=== PATIENT | male | born 1935 | race Caucasian/White ===

== ENCOUNTER 2016-10-17 11:56 | Inpatient (IN) | payer MEDICARE, OTHER, MEDICAID ==
[~2016-10-17 11:56] MED LIST: ALEVE220 M1 PO; ASPIR 8181 M1 PO; ATIVAN0.5 MG PO; B COMPLEX1 CAP PO; BACTRIM DS1 TA1 PO; CALCIUM 500 +1 EAC8 PO; CANASA1000 MG PR; CELEXA10 MG PO; CENTRUM SILVER1 EACH PO; CIPRO500 M1 PO; CIPRO500 MG PO; CITALOPRAM HBR10 M1 PO; COLACE100 M1 PO; COLACE100 MG PO; CYANOCOBAL1000 MCG/3 IM; DOCUSATE SODIU100 M PO; FERROUS SULFAT325 MG PO; FLAGYL500 MG PO; FLOMAX0.4 MG PO; FLONASE ALLERG9.9 ML; FLOVENT DISKUS50 MCG IH; FLUTICASONE PRO16 G1; GABAPENTIN300 M1 PO; HYDROCODON-ACE1 EA16 PO; HYDROCODONE/APA1 CAP PO; IRON325 ( 65 ) PO; IRON325 M3 PO; KEFLEX500 M4 PO; LIDODERM700 MG TOP; LO-DOSE ASPIRIN81 M2 PO; MILK OF MAGNESIA PO; MULTIVITAMIN1 TAB PO; NORCO 5/3251 TA1 PO; OMEPRAZOLE40 M2 PO; OMEPRAZOLE40 MG PO; PAIN & FEVER325 M1 PO; PREVACID15 MG PO; PRILOSEC10 MG PO; PRILOSEC40 M1 PO; PROTONIX40 M2 PO; PYRIDIUM200 MG PO; RANEXA500 M1 PO; TENS 5021 EACH; TYLENOL EXTRA500 M1 PO; TYLENOL325 MG PO; [UNRECOGNIZED DRUG - OTHER] PO; [UNRECOGNIZED DRUG - REMARK]
[2016-10-17 12:27] LABS: INR 1.1 INR (0.9-1.1); PROTHROMBIN TIME 13.3 SECONDS (9.0-13.6)
[2016-10-17] MEDS ORDERED: PYRIDOXINE HCL50 M1 PO (12:35)
[2016-10-17 12:39] LABS: ANION GAP 14 mmol/L (0-20); BLOOD UREA NITROGEN 19 mg/dl (6-24); CALCIUM 8.6 mg/dl (8.5-10.5); CARBON DIOXIDE-VENOUS 25 mmol/L (22-32); CHLORIDE 103 mmol/l (96-110); CREATININE 1.37 mg/dl (0.60-1.30); GLUCOSE 84 mg/dL (70-110); HGB-HEMOGLOBIN 8.5 gm/dl (13.5-17.0); MCH (MEAN CORPUSCULAR HGB) 29.7 pg (28.0-32.0); MCHC MEAN CORPUSCULAR HGB CONC 32.7 % (32.0-36.0); MCV (MEAN CELL VOLUME) 90.9 fl (82.0-96.0); NEUTROPHIL-AUTOMATED 2.1 tho/cmm (1.6-8.0); POTASSIUM 4.1 mmol/L (3.7-5.1); RED BLOOD COUNT 2.86 mil/cmm (4.40-5.70); RED CELL DISTRIBUTION WIDTH 17.9 % (12.4-16.4); SODIUM 138 mmol/L (135-145); WHITE BLOOD COUNT 3.1 tho/cmm (4.0-10.0); eGFR VALUE FOR BLACK 56 mL/Min
[2016-10-17] MEDS ORDERED: PROCRIT20000 UNIT SC (12:42)
[2016-10-17 13:38] LABS: PLATELET COUNT 73 tho/cmm (150-450)
[2016-10-17 13:48] LABS: BAND % 15 % (0-20); BAND ABSOLUTE COUNT 0.5 tho/cmm (0-2.0); EOSINOPHIL % 8 % (0-7)
[2016-10-17 16:26] LABS: ALB/GLOB RATIO 0.7 (0.8-2.0); ALBUMIN 3.2 g/dl (3.5-5.0); BILIRUBIN,DIRECT 0.3 mg/dl (0.0-0.3); BILIRUBIN,INDIRECT 1.3 mg/dL (0.0-1.0); BILIRUBIN,TOTAL 1.6 mg/dl (0.0-1.5)
[2016-10-18 05:44] LABS: BASO % 0.7 % (0-2); EOS % 5.2 % (0-7); EOSINOPHIL ABSOLUTE COUNT 0.1 tho/cmm (0.0-0.7); HGB-HEMOGLOBIN 7.5 gm/dl (13.5-17.0); IMMATURE GRANULOCYTES PERCENT 3.7 % (0-0.3); LYMPH % 20.7 % (20-45); LYMPH ABSOLUTE COUNT 0.6 tho/cmm (0.8-4.5); MCH (MEAN CORPUSCULAR HGB) 29.4 pg (28.0-32.0); MONO % 8.9 % (0-12); MONOCYTE ABSOLUTE COUNT 0.2 tho/cmm (0.0-1.2); NEUTROPHIL ABSOLUTE COUNT 1.7 tho/cmm (1.6-8.0); NEUTROPHIL-AUTOMATED 1.7 tho/cmm (1.6-8.0); NEUTROPHILS % 60.8 % (40-80); RED BLOOD COUNT 2.55 mil/cmm (4.40-5.70); RED CELL DISTRIBUTION WIDTH 17.9 % (12.4-16.4); WHITE BLOOD COUNT 2.7 tho/cmm (4.0-10.0)
[2016-10-18 05:58] LABS: ANION GAP 11 mmol/L (0-20); BLOOD UREA NITROGEN 19 mg/dl (6-24); CALCIUM 7.7 mg/dl (8.5-10.5); CARBON DIOXIDE-VENOUS 26 mmol/L (22-32); CHLORIDE 106 mmol/l (96-110); CREATININE 1.11 mg/dl (0.60-1.30); GLUCOSE 101 mg/dL (70-110); POTASSIUM 4.2 mmol/L (3.7-5.1); SODIUM 139 mmol/L (135-145); eGFR VALUE FOR BLACK 72 mL/Min
[2016-10-18 06:08] LABS: HCT-HEMATOCRIT 23.2 % (36.0-53.5); MCHC MEAN CORPUSCULAR HGB CONC 32.3 % (32.0-36.0)
[2016-10-18 09:05] LABS: PLATELET COUNT 87 tho/cmm (150-450)
[2016-10-19 12:21] LABS: BASO % 0.2 % (0-2); EOS % 3.6 % (0-7); EOSINOPHIL ABSOLUTE COUNT 0.2 tho/cmm (0.0-0.7); HGB-HEMOGLOBIN 7.6 gm/dl (13.5-17.0); IMMATURE GRANULOCYTES ABSOLUTE 0.09 tho/cmm (0-0.03); LYMPH % 12.1 % (20-45); LYMPH ABSOLUTE COUNT 0.5 tho/cmm (0.8-4.5); MCH (MEAN CORPUSCULAR HGB) 29.2 pg (28.0-32.0); MCV (MEAN CELL VOLUME) 90.8 fl (82.0-96.0); MONO % 4.7 % (0-12); MONOCYTE ABSOLUTE COUNT 0.2 tho/cmm (0.0-1.2); NEUTROPHIL ABSOLUTE COUNT 3.4 tho/cmm (1.6-8.0); NEUTROPHIL-AUTOMATED 3.4 tho/cmm (1.6-8.0); NEUTROPHILS % 77.4 % (40-80); PLATELET COUNT 82 tho/cmm (150-450); RED CELL DISTRIBUTION WIDTH 17.8 % (12.4-16.4)
[2016-10-19 12:25] LABS: HCT-HEMATOCRIT 23.6 % (36.0-53.5); MCHC MEAN CORPUSCULAR HGB CONC 32.2 % (32.0-36.0); WHITE BLOOD COUNT 4.5 tho/cmm (4.0-10.0)
[2016-10-20 04:47] LABS: PLATELET COUNT 80 tho/cmm (150-450)
[2017-03-24] MEDS ORDERED: PROTONIX40 M2 PO (23:07)
[2017-03-24] MEDS ORDERED: MAGNESIUM400 M2 PO (23:07)
[2017-03-24] MEDS ORDERED: ASPIRIN EC81 MG PO (23:07)
[2017-03-24] MEDS ORDERED: VITAMIN B-6100 M1 PO (23:08)
[2017-03-24] MEDS ORDERED: PRINIVIL5 M1 PO (23:08)
[2017-03-24] MEDS ORDERED: PLAVIX75 M1 PO (23:08)
[2017-03-24] MEDS ORDERED: LIPITOR40 M1 PO (23:08)
[2017-03-25] MEDS ORDERED: LOPERAMIDE2 M2 PO (10:07)
[2017-04-02] MEDS ORDERED: IPRAT-ALBUT 0.5-3 ML NEB ×2 (11:48→11:50)
[2017-04-02] MEDS ORDERED: PACERONE200 M1 PO (11:52)
[2017-04-02] MEDS ORDERED: LASIX20 M1 PO (12:47)
[2017-04-15] MEDS ORDERED: ANALGESIC BALM30 G2 TOP (15:23)
[2017-04-15] MEDS ORDERED: LIDODERM1 EACH TOP (15:38)
== END 2016-10-20 16:45 | DRG 812 ==
LOC: EDMED 11:56 → EMR2 15:58 → 5WE 18:00
PROVIDERS: Emergency Medicine; ADMIT Internal Medicine
PROC: 30233N1 Transfusion of Nonautologous Red Blood Cells into Peripheral Vein, Percutaneous Approach (ICD-10-PCS; principal; 2016-10-19)
DX: D46.9 Myelodysplastic syndrome, unspecified (principal); D61.818 Other pancytopenia; E86.0 Dehydration; I35.0 Nonrheumatic aortic (valve) stenosis; F32.9 Major depressive disorder, single episode, unspecified; I71.4 Abdominal aortic aneurysm, without rupture; R01.1 Cardiac murmur, unspecified; Z85.46 Personal history of malignant neoplasm of prostate; N18.9 Chronic kidney disease, unspecified; M81.0 Age-related osteoporosis without current pathological fracture; K21.9 Gastro-esophageal reflux disease without esophagitis; Z87.891 Personal history of nicotine dependence; Z98.890 Other specified postprocedural states
CPT/HCPCS: A9503; A9540; A9558; J2405; J7030; J7050; P9016; Q9967

== ENCOUNTER 2016-11-12 05:24 | Inpatient (IN) | payer MEDICARE, OTHER, MEDICAID ==
[~2016-11-12 05:24] MED LIST changes: +PROCRIT20000 UNIT SC; +PYRIDOXINE HCL50 M1 PO
[2016-11-12 06:53] LABS: ALB/GLOB RATIO 0.6 (0.8-2.0); ALBUMIN 2.8 g/dl (3.5-5.0); ALKALINE PHOSPHATASE 65 U/L (33-138); ALT/SGPT 10 U/L (12-78); ANION GAP 9 mmol/L (0-20); AST/SGOT 22 U/L (10-40); BILIRUBIN,TOTAL 1.6 mg/dl (0.0-1.5); BLOOD UREA NITROGEN 24 mg/dl (6-24); CALCIUM 8.5 mg/dl (8.5-10.5); CARBON DIOXIDE-VENOUS 29 mmol/L (22-32); CHLORIDE 104 mmol/l (96-110); CREATININE 1.17 mg/dl (0.60-1.30); GLUCOSE 104 mg/dL (70-110); POTASSIUM 4.4 mmol/L (3.7-5.1); SODIUM 138 mmol/L (135-145); eGFR VALUE FOR BLACK 67 mL/Min
[2016-11-12 07:00] LABS: HGB-HEMOGLOBIN 6.9 gm/dl (13.5-17.0); MCH (MEAN CORPUSCULAR HGB) 28.8 pg (28.0-32.0); MCV (MEAN CELL VOLUME) 88.8 fl (82.0-96.0); NEUTROPHIL-AUTOMATED 6.5 tho/cmm (1.6-8.0); RED CELL DISTRIBUTION WIDTH 18.5 % (12.4-16.4); WHITE BLOOD COUNT 7.7 tho/cmm (4.0-10.0)
[2016-11-12 07:02] LABS: HCT-HEMATOCRIT 21.3 % (36.0-53.5); MCHC MEAN CORPUSCULAR HGB CONC 32.4 % (32.0-36.0)
[2016-11-12 07:36] LABS: PLATELET COUNT 33 tho/cmm (150-450)
[2016-11-12 07:40] LABS: BAND % 23 % (0-20); BAND ABSOLUTE COUNT 1.8 tho/cmm (0-2.0); EOSINOPHIL % 2 % (0-7)
[2016-11-12] MEDS ORDERED: ONDANSETRON HCL8 M1 PO (11:05)
[2016-11-13 04:43] LABS: HGB-HEMOGLOBIN 7.3 gm/dl (13.5-17.0)
[2016-11-13 04:45] LABS: PLATELET COUNT 14 tho/cmm (150-450)
[2016-11-13 04:51] LABS: ANION GAP 9 mmol/L (0-20); BLOOD UREA NITROGEN 28 mg/dl (6-24); CALCIUM 7.8 mg/dl (8.5-10.5); CARBON DIOXIDE-VENOUS 29 mmol/L (22-32); CHLORIDE 105 mmol/l (96-110); CREATININE 1.14 mg/dl (0.60-1.30); GLUCOSE 104 mg/dL (70-110); POTASSIUM 4.4 mmol/L (3.7-5.1); SODIUM 139 mmol/L (135-145); eGFR VALUE FOR BLACK 70 mL/Min
[2016-11-13 12:29] LABS: ALB/GLOB RATIO 0.7 (0.8-2.0); ALBUMIN 2.8 g/dl (3.5-5.0); ALKALINE PHOSPHATASE 64 U/L (33-138); ALT/SGPT 12 U/L (12-78); ANION GAP 10 mmol/L (0-20); AST/SGOT 23 U/L (10-40); BILIRUBIN,TOTAL 2.1 mg/dl (0.0-1.5); BLOOD UREA NITROGEN 28 mg/dl (6-24); CALCIUM 8.1 mg/dl (8.5-10.5); CARBON DIOXIDE-VENOUS 27 mmol/L (22-32); CHLORIDE 103 mmol/l (96-110); CREATININE 1.15 mg/dl (0.60-1.30); GLUCOSE 119 mg/dL (70-110); POTASSIUM 4.2 mmol/L (3.7-5.1); SODIUM 136 mmol/L (135-145); eGFR VALUE FOR BLACK 69 mL/Min
[2016-11-14 00:41] LABS: PLATELET COUNT 42 tho/cmm (150-450)
[2016-11-14 05:42] LABS: BASO % 0.2 % (0-2); EOS % 2.5 % (0-7); EOSINOPHIL ABSOLUTE COUNT 0.1 tho/cmm (0.0-0.7); HGB-HEMOGLOBIN 6.2 gm/dl (13.5-17.0); IMMATURE GRANULOCYTES PERCENT 2.1 % (0-0.3); LYMPH % 12.3 % (20-45); LYMPH ABSOLUTE COUNT 0.6 tho/cmm (0.8-4.5); MCV (MEAN CELL VOLUME) 87.4 fl (82.0-96.0); MONO % 2.1 % (0-12); MONOCYTE ABSOLUTE COUNT 0.1 tho/cmm (0.0-1.2); NEUTROPHIL ABSOLUTE COUNT 3.8 tho/cmm (1.6-8.0); NEUTROPHIL-AUTOMATED 3.8 tho/cmm (1.6-8.0); NEUTROPHILS % 80.8 % (40-80); RED BLOOD COUNT 2.14 mil/cmm (4.40-5.70); RED CELL DISTRIBUTION WIDTH 18.5 % (12.4-16.4); WHITE BLOOD COUNT 4.7 tho/cmm (4.0-10.0)
[2016-11-14 05:47] LABS: HCT-HEMATOCRIT 18.7 % (36.0-53.5); MCHC MEAN CORPUSCULAR HGB CONC 33.2 % (32.0-36.0)
[2016-11-14 05:48] LABS: PLATELET COUNT 31 tho/cmm (150-450)
[2016-11-14 05:51] LABS: ANION GAP 9 mmol/L (0-20); BLOOD UREA NITROGEN 28 mg/dl (6-24); CALCIUM 7.8 mg/dl (8.5-10.5); CARBON DIOXIDE-VENOUS 27 mmol/L (22-32); CHLORIDE 104 mmol/l (96-110); CREATININE 1.08 mg/dl (0.60-1.30); GLUCOSE 98 mg/dL (70-110); POTASSIUM 4.2 mmol/L (3.7-5.1); SODIUM 136 mmol/L (135-145); eGFR VALUE FOR BLACK 74 mL/Min
[2016-11-15 04:24] LABS: EOS % 2.7 % (0-7); EOSINOPHIL ABSOLUTE COUNT 0.1 tho/cmm (0.0-0.7); IMMATURE GRANULOCYTES ABSOLUTE 0.11 tho/cmm (0-0.03); IMMATURE GRANULOCYTES PERCENT 3.3 % (0-0.3); LYMPH % 13.9 % (20-45); LYMPH ABSOLUTE COUNT 0.5 tho/cmm (0.8-4.5); MCH (MEAN CORPUSCULAR HGB) 28.8 pg (28.0-32.0); MCV (MEAN CELL VOLUME) 87.2 fl (82.0-96.0); MONO % 4.1 % (0-12); MONOCYTE ABSOLUTE COUNT 0.1 tho/cmm (0.0-1.2); NEUTROPHIL ABSOLUTE COUNT 2.6 tho/cmm (1.6-8.0); NEUTROPHIL-AUTOMATED 2.6 tho/cmm (1.6-8.0); RED BLOOD COUNT 2.43 mil/cmm (4.40-5.70); RED CELL DISTRIBUTION WIDTH 17.7 % (12.4-16.4); WHITE BLOOD COUNT 3.4 tho/cmm (4.0-10.0)
[2016-11-15 04:30] LABS: HCT-HEMATOCRIT 21.2 % (36.0-53.5)
[2016-11-15 04:34] LABS: PLATELET COUNT 21 tho/cmm (150-450)
[2016-11-15 04:41] LABS: ALB/GLOB RATIO 0.6 (0.8-2.0); ALBUMIN 2.6 g/dl (3.5-5.0); ALKALINE PHOSPHATASE 58 U/L (33-138); ALT/SGPT 12 U/L (12-78); ANION GAP 10 mmol/L (0-20); AST/SGOT 19 U/L (10-40); BILIRUBIN,TOTAL 2.1 mg/dl (0.0-1.5); BLOOD UREA NITROGEN 28 mg/dl (6-24); CARBON DIOXIDE-VENOUS 28 mmol/L (22-32); CHLORIDE 103 mmol/l (96-110); CREATININE 1.16 mg/dl (0.60-1.30); GLUCOSE 112 mg/dL (70-110); POTASSIUM 3.9 mmol/L (3.7-5.1); SODIUM 137 mmol/L (135-145); eGFR VALUE FOR BLACK 68 mL/Min
[2016-11-16 01:49] LABS: EOS % 2.9 % (0-7); EOSINOPHIL ABSOLUTE COUNT 0.1 tho/cmm (0.0-0.7); HCT-HEMATOCRIT 21.3 % (36.0-53.5); HGB-HEMOGLOBIN 7.2 gm/dl (13.5-17.0); IMMATURE GRANULOCYTES PERCENT 4.8 % (0-0.3); LYMPH % 25.7 % (20-45); LYMPH ABSOLUTE COUNT 0.5 tho/cmm (0.8-4.5); MCH (MEAN CORPUSCULAR HGB) 28.8 pg (28.0-32.0); MCHC MEAN CORPUSCULAR HGB CONC 33.8 % (32.0-36.0); MCV (MEAN CELL VOLUME) 85.2 fl (82.0-96.0); MONO % 3.8 % (0-12); MONOCYTE ABSOLUTE COUNT 0.1 tho/cmm (0.0-1.2); NEUTROPHIL ABSOLUTE COUNT 1.3 tho/cmm (1.6-8.0); NEUTROPHIL-AUTOMATED 1.3 tho/cmm (1.6-8.0); NEUTROPHILS % 62.8 % (40-80); WHITE BLOOD COUNT 2.1 tho/cmm (4.0-10.0)
[2016-11-16 01:51] LABS: PLATELET COUNT 41 tho/cmm (150-450)
[2016-11-16 02:01] LABS: ANION GAP 14 mmol/L (0-20); BLOOD UREA NITROGEN 27 mg/dl (6-24); CALCIUM 7.6 mg/dl (8.5-10.5); CARBON DIOXIDE-VENOUS 26 mmol/L (22-32); CHLORIDE 101 mmol/l (96-110); CREATININE 1.11 mg/dl (0.60-1.30); GLUCOSE 116 mg/dL (70-110); POTASSIUM 3.8 mmol/L (3.7-5.1); SODIUM 137 mmol/L (135-145); eGFR VALUE FOR BLACK 72 mL/Min
[2016-11-16 20:00] LABS: URINE APPEARANCE HAZY; URINE BILIRUBIN NEGATIVE (NEG); URINE BLOOD LARGE (NEG); URINE COLOR YELLOW; URINE GLUCOSE (UA) NEGATIVE (NEG); URINE KETONE NEGATIVE (NEG); URINE LEUKOCYTE ESTERASE NEGATIVE (NEG); URINE NITRITE NEGATIVE (NEG); URINE PROTEIN SMALL (NEG); URINE SPECIFIC GRAVITY 1.015 (1.003-1.030)
[2016-11-16 20:19] LABS: URINE EPITHELIAL CELLS 0 /[HPF] (0-10); URINE WBC 0 /[HPF] (0-5)
[2016-11-16 21:03] LABS: PROCALCITONIN 0.24 ng/ml (0.05-0.09)
[2016-11-17 13:30] LABS: HCT-HEMATOCRIT 24.7 % (36.0-53.5); HGB-HEMOGLOBIN 8.4 gm/dl (13.5-17.0); MCH (MEAN CORPUSCULAR HGB) 28.9 pg (28.0-32.0); MCV (MEAN CELL VOLUME) 84.9 fl (82.0-96.0); NEUTROPHIL-AUTOMATED 0.9 tho/cmm (1.6-8.0); RED BLOOD COUNT 2.91 mil/cmm (4.40-5.70); RED CELL DISTRIBUTION WIDTH 16.2 % (12.4-16.4)
[2016-11-17 13:37] LABS: EOS % 3.6 % (0-7); EOSINOPHIL ABSOLUTE COUNT 0.1 tho/cmm (0.0-0.7); IMMATURE GRANULOCYTES ABSOLUTE 0.08 tho/cmm (0-0.03); IMMATURE GRANULOCYTES PERCENT 5.8 % (0-0.3); LYMPH % 21.6 % (20-45); LYMPH ABSOLUTE COUNT 0.3 tho/cmm (0.8-4.5); MONO % 1.4 % (0-12); NEUTROPHIL ABSOLUTE COUNT 0.9 tho/cmm (1.6-8.0); NEUTROPHILS % 67.6 % (40-80)
[2016-11-17 13:38] LABS: ANION GAP 12 mmol/L (0-20); BLOOD UREA NITROGEN 21 mg/dl (6-24); CALCIUM 7.7 mg/dl (8.5-10.5); CARBON DIOXIDE-VENOUS 25 mmol/L (22-32); CHLORIDE 100 mmol/l (96-110); CREATININE 0.99 mg/dl (0.60-1.30); GLUCOSE 100 mg/dL (70-110); POTASSIUM 3.9 mmol/L (3.7-5.1); SODIUM 133 mmol/L (135-145); eGFR VALUE FOR BLACK 82 mL/Min
[2016-11-17 13:40] LABS: PLATELET COUNT 16 tho/cmm (150-450); WHITE BLOOD COUNT 1.4 tho/cmm (4.0-10.0)
[2016-11-18 04:34] LABS: EOS % 2.7 % (0-7); EOSINOPHIL ABSOLUTE COUNT 0.1 tho/cmm (0.0-0.7); HGB-HEMOGLOBIN 7.2 gm/dl (13.5-17.0); IMMATURE GRANULOCYTES ABSOLUTE 0.03 tho/cmm (0-0.03); IMMATURE GRANULOCYTES PERCENT 1.6 % (0-0.3); LYMPH % 23.1 % (20-45); LYMPH ABSOLUTE COUNT 0.4 tho/cmm (0.8-4.5); MCH (MEAN CORPUSCULAR HGB) 28.7 pg (28.0-32.0); MCV (MEAN CELL VOLUME) 86.1 fl (82.0-96.0); MONO % 3.8 % (0-12); MONOCYTE ABSOLUTE COUNT 0.1 tho/cmm (0.0-1.2); NEUTROPHIL ABSOLUTE COUNT 1.3 tho/cmm (1.6-8.0); NEUTROPHIL-AUTOMATED 1.3 tho/cmm (1.6-8.0); NEUTROPHILS % 68.8 % (40-80); RED BLOOD COUNT 2.51 mil/cmm (4.40-5.70); RED CELL DISTRIBUTION WIDTH 16.2 % (12.4-16.4)
[2016-11-18 04:36] LABS: HCT-HEMATOCRIT 21.6 % (36.0-53.5); MCHC MEAN CORPUSCULAR HGB CONC 33.3 % (32.0-36.0); PLATELET COUNT 34 tho/cmm (150-450)
[2016-11-18 04:37] LABS: WHITE BLOOD COUNT 1.9 tho/cmm (4.0-10.0)
[2016-11-18 04:40] LABS: ANION GAP 12 mmol/L (0-20); BLOOD UREA NITROGEN 19 mg/dl (6-24); CALCIUM 7.4 mg/dl (8.5-10.5); CARBON DIOXIDE-VENOUS 26 mmol/L (22-32); CHLORIDE 102 mmol/l (96-110); GLUCOSE 107 mg/dL (70-110); POTASSIUM 3.6 mmol/L (3.7-5.1); SODIUM 136 mmol/L (135-145); eGFR VALUE FOR BLACK 73 mL/Min
[2016-11-18 17:53] LABS: HGB-HEMOGLOBIN 7.6 gm/dl (13.5-17.0); MCV (MEAN CELL VOLUME) 86.2 fl (82.0-96.0)
[2016-11-18 18:32] LABS: HCT-HEMATOCRIT 23.1 % (36.0-53.5)
[2016-11-18 21:17] LABS: EOS % 1.4 % (0-7); HCT-HEMATOCRIT 23.2 % (36.0-53.5); HGB-HEMOGLOBIN 7.8 gm/dl (13.5-17.0); IMMATURE GRANULOCYTES ABSOLUTE 0.02 tho/cmm (0-0.03); IMMATURE GRANULOCYTES PERCENT 1.4 % (0-0.3); LYMPH % 23.6 % (20-45); LYMPH ABSOLUTE COUNT 0.3 tho/cmm (0.8-4.5); MCH (MEAN CORPUSCULAR HGB) 28.8 pg (28.0-32.0); MCHC MEAN CORPUSCULAR HGB CONC 33.6 % (32.0-36.0); MCV (MEAN CELL VOLUME) 85.6 fl (82.0-96.0); MONO % 0.7 % (0-12); NEUTROPHILS % 72.9 % (40-80); RED BLOOD COUNT 2.71 mil/cmm (4.40-5.70); RED CELL DISTRIBUTION WIDTH 15.7 % (12.4-16.4)
[2016-11-18 21:18] LABS: PLATELET COUNT 21 tho/cmm (150-450); WHITE BLOOD COUNT 1.4 tho/cmm (4.0-10.0)
[2016-11-18 21:29] LABS: INR 1.3 INR (0.9-1.1); PROTHROMBIN TIME 14.7 SECONDS (9.0-13.6)
[2016-11-19 05:40] LABS: ALB/GLOB RATIO 0.6 (0.8-2.0); ALBUMIN 2.2 g/dl (3.5-5.0); ALKALINE PHOSPHATASE 55 U/L (33-138); ALT/SGPT 14 U/L (12-78); ANION GAP 12 mmol/L (0-20); AST/SGOT 20 U/L (10-40); BILIRUBIN,TOTAL 2.3 mg/dl (0.0-1.5); BLOOD UREA NITROGEN 19 mg/dl (6-24); CALCIUM 7.5 mg/dl (8.5-10.5); CARBON DIOXIDE-VENOUS 25 mmol/L (22-32); CHLORIDE 101 mmol/l (96-110); CREATININE 0.99 mg/dl (0.60-1.30); EOS % 4.6 % (0-7); EOSINOPHIL ABSOLUTE COUNT 0.1 tho/cmm (0.0-0.7); GLUCOSE 107 mg/dL (70-110); IMMATURE GRANULOCYTES ABSOLUTE 0.04 tho/cmm (0-0.03); IMMATURE GRANULOCYTES PERCENT 3.7 % (0-0.3); LYMPH % 27.8 % (20-45); LYMPH ABSOLUTE COUNT 0.3 tho/cmm (0.8-4.5); MAGNESIUM 1.6 mg/dl (1.8-2.6); MCH (MEAN CORPUSCULAR HGB) 28.9 pg (28.0-32.0); MCV (MEAN CELL VOLUME) 85.5 fl (82.0-96.0); MEAN PLATELET VOLUME 9.8 cmc (9.4-12.4); MONO % 1.9 % (0-12); NEUTROPHIL ABSOLUTE COUNT 0.7 tho/cmm (1.6-8.0); NEUTROPHIL-AUTOMATED 0.7 tho/cmm (1.6-8.0); POTASSIUM 3.9 mmol/L (3.7-5.1); RED BLOOD COUNT 2.42 mil/cmm (4.40-5.70); RED CELL DISTRIBUTION WIDTH 15.6 % (12.4-16.4); SODIUM 134 mmol/L (135-145); eGFR VALUE FOR BLACK 82 mL/Min
[2016-11-19 05:46] LABS: HCT-HEMATOCRIT 20.7 % (36.0-53.5); MCHC MEAN CORPUSCULAR HGB CONC 33.8 % (32.0-36.0); PLATELET COUNT 85 tho/cmm (150-450)
[2016-11-19 05:48] LABS: WHITE BLOOD COUNT 1.1 tho/cmm (4.0-10.0)
[2016-11-19 13:30] LABS: HGB-HEMOGLOBIN 9.6 gm/dl (13.5-17.0)
[2016-11-20 05:44] LABS: HCT-HEMATOCRIT 25.3 % (36.0-53.5); HGB-HEMOGLOBIN 8.5 gm/dl (13.5-17.0); MCH (MEAN CORPUSCULAR HGB) 28.6 pg (28.0-32.0); MCHC MEAN CORPUSCULAR HGB CONC 33.6 % (32.0-36.0); MCV (MEAN CELL VOLUME) 85.2 fl (82.0-96.0); MEAN PLATELET VOLUME 10.5 cmc (9.4-12.4); PLATELET COUNT 57 tho/cmm (150-450); RED BLOOD COUNT 2.97 mil/cmm (4.40-5.70); RED CELL DISTRIBUTION WIDTH 15.4 % (12.4-16.4)
[2016-11-20 05:47] LABS: BASO % 2.5 % (0-2); IMMATURE GRANULOCYTES ABSOLUTE 0.05 tho/cmm (0-0.03); IMMATURE GRANULOCYTES PERCENT 12.5 % (0-0.3); LYMPH ABSOLUTE COUNT 0.1 tho/cmm (0.8-4.5); MONO % 2.5 % (0-12); NEUTROPHILS % 42.5 % (40-80)
[2016-11-20 05:49] LABS: NEUTROPHIL ABSOLUTE COUNT 0.2 tho/cmm (1.6-8.0); WHITE BLOOD COUNT 0.4 tho/cmm (4.0-10.0)
[2016-11-20 05:59] LABS: ALB/GLOB RATIO 0.5 (0.8-2.0); ALBUMIN 2.2 g/dl (3.5-5.0); ALKALINE PHOSPHATASE 59 U/L (33-138); ALT/SGPT 14 U/L (12-78); ANION GAP 13 mmol/L (0-20); AST/SGOT 25 U/L (10-40); BILIRUBIN,DIRECT 1.3 mg/dl (0.0-0.3); BILIRUBIN,INDIRECT 1.2 mg/dL (0.0-1.0); BILIRUBIN,TOTAL 2.5 mg/dl (0.0-1.5); BLOOD UREA NITROGEN 21 mg/dl (6-24); CALCIUM 7.6 mg/dl (8.5-10.5); CARBON DIOXIDE-VENOUS 25 mmol/L (22-32); CHLORIDE 101 mmol/l (96-110); GLUCOSE 121 mg/dL (70-110); POTASSIUM 3.9 mmol/L (3.7-5.1); SODIUM 135 mmol/L (135-145); eGFR VALUE FOR BLACK 56 mL/Min
[2016-11-20 06:03] LABS: CREATININE 1.37 mg/dl (0.60-1.30)
[2016-11-20 14:54] LABS: EOS % 2.3 % (0-7); HCT-HEMATOCRIT 26.8 % (36.0-53.5); LYMPH % 44.2 % (20-45); LYMPH ABSOLUTE COUNT 0.2 tho/cmm (0.8-4.5); MCH (MEAN CORPUSCULAR HGB) 28.8 pg (28.0-32.0); MCHC MEAN CORPUSCULAR HGB CONC 33.6 % (32.0-36.0); MCV (MEAN CELL VOLUME) 85.9 fl (82.0-96.0); MEAN PLATELET VOLUME 10.8 cmc (9.4-12.4); MONO % 2.3 % (0-12); NEUTROPHILS % 51.2 % (40-80); RED BLOOD COUNT 3.12 mil/cmm (4.40-5.70); RED CELL DISTRIBUTION WIDTH 15.4 % (12.4-16.4)
[2016-11-20 15:01] LABS: WHITE BLOOD COUNT 0.4 tho/cmm (4.0-10.0)
[2016-11-20 15:04] LABS: NEUTROPHIL ABSOLUTE COUNT 0.2 tho/cmm (1.6-8.0); PLATELET COUNT 46 tho/cmm (150-450)
[2016-11-20 19:44] LABS: URINE BILIRUBIN SMALL (NEG); URINE BLOOD LARGE (NEG); URINE GLUCOSE (UA) NEGATIVE (NEG); URINE KETONE NEGATIVE (NEG); URINE LEUKOCYTE ESTERASE POSITIVE (NEG); URINE NITRITE NEGATIVE (NEG); URINE PROTEIN MODERATE (NEG)
[2016-11-20 19:45] LABS: URINE APPEARANCE HAZY; URINE COLOR DARK YELLOW
[2016-11-20 19:55] LABS: URINE BACTERIA 2+; URINE EPITHELIAL CELLS 0-2 /[HPF] (0-10); URINE WBC 0-1 /[HPF] (0-5)
[2016-11-21 04:24] LABS: EOS % 5.7 % (0-7); LYMPH % 62.9 % (20-45); LYMPH ABSOLUTE COUNT 0.2 tho/cmm (0.8-4.5); MCH (MEAN CORPUSCULAR HGB) 29.3 pg (28.0-32.0); MCV (MEAN CELL VOLUME) 85.8 fl (82.0-96.0); MEAN PLATELET VOLUME 9.6 cmc (9.4-12.4); NEUTROPHILS % 31.4 % (40-80); RED BLOOD COUNT 2.39 mil/cmm (4.40-5.70); RED CELL DISTRIBUTION WIDTH 15.3 % (12.4-16.4)
[2016-11-21 04:52] LABS: ALB/GLOB RATIO 0.5 (0.8-2.0); ALKALINE PHOSPHATASE 60 U/L (33-138); ALT/SGPT 18 U/L (12-78); ANION GAP 12 mmol/L (0-20); AST/SGOT 28 U/L (10-40); BILIRUBIN,DIRECT 1.1 mg/dl (0.0-0.3); BILIRUBIN,TOTAL 2.1 mg/dl (0.0-1.5); BLOOD UREA NITROGEN 26 mg/dl (6-24); CALCIUM 7.2 mg/dl (8.5-10.5); CARBON DIOXIDE-VENOUS 24 mmol/L (22-32); CHLORIDE 100 mmol/l (96-110); GLUCOSE 135 mg/dL (70-110); POTASSIUM 3.8 mmol/L (3.7-5.1); SODIUM 132 mmol/L (135-145); eGFR VALUE FOR BLACK 50 mL/Min
[2016-11-21 05:10] LABS: HCT-HEMATOCRIT 20.5 % (36.0-53.5); MCHC MEAN CORPUSCULAR HGB CONC 34.1 % (32.0-36.0)
[2016-11-21 05:11] LABS: PLATELET COUNT 37 tho/cmm (150-450); WHITE BLOOD COUNT 0.4 tho/cmm (4.0-10.0)
[2016-11-21 07:03] LABS: NEUTROPHIL ABSOLUTE COUNT 0.1 tho/cmm (1.6-8.0)
[2016-11-21 13:48] LABS: HGB-HEMOGLOBIN 7.8 gm/dl (13.5-17.0); MCH (MEAN CORPUSCULAR HGB) 29.1 pg (28.0-32.0); MCV (MEAN CELL VOLUME) 85.8 fl (82.0-96.0); MEAN PLATELET VOLUME 10.3 cmc (9.4-12.4); RED BLOOD COUNT 2.68 mil/cmm (4.40-5.70); RED CELL DISTRIBUTION WIDTH 15.2 % (12.4-16.4)
[2016-11-21 13:50] LABS: BASO % 2.4 % (0-2); EOS % 4.9 % (0-7); IMMATURE GRANULOCYTES ABSOLUTE 0.05 tho/cmm (0-0.03); IMMATURE GRANULOCYTES PERCENT 12.2 % (0-0.3); LYMPH % 56.1 % (20-45); LYMPH ABSOLUTE COUNT 0.2 tho/cmm (0.8-4.5); MCHC MEAN CORPUSCULAR HGB CONC 33.9 % (32.0-36.0); MONO % 2.4 % (0-12); PLATELET COUNT 63 tho/cmm (150-450)
[2016-11-21 13:51] LABS: NEUTROPHIL ABSOLUTE COUNT 0.1 tho/cmm (1.6-8.0); WHITE BLOOD COUNT 0.4 tho/cmm (4.0-10.0)
[2016-11-21 19:54] LABS: BASO % 2.4 % (0-2); EOS % 7.1 % (0-7); LYMPH ABSOLUTE COUNT 0.3 tho/cmm (0.8-4.5); MCH (MEAN CORPUSCULAR HGB) 29.1 pg (28.0-32.0); MCV (MEAN CELL VOLUME) 85.5 fl (82.0-96.0); MEAN PLATELET VOLUME 9.6 cmc (9.4-12.4); MONO % 2.4 % (0-12); NEUTROPHILS % 19.1 % (40-80); RED BLOOD COUNT 2.75 mil/cmm (4.40-5.70); RED CELL DISTRIBUTION WIDTH 15.1 % (12.4-16.4)
[2016-11-21 19:57] LABS: HCT-HEMATOCRIT 23.5 % (36.0-53.5)
[2016-11-21 19:58] LABS: NEUTROPHIL ABSOLUTE COUNT 0.1 tho/cmm (1.6-8.0); WHITE BLOOD COUNT 0.4 tho/cmm (4.0-10.0)
[2016-11-21 20:00] LABS: PLATELET COUNT 40 tho/cmm (150-450)
[2016-11-22 04:13] LABS: HCT-HEMATOCRIT 25.6 % (36.0-53.5); HGB-HEMOGLOBIN 8.6 gm/dl (13.5-17.0); MCH (MEAN CORPUSCULAR HGB) 28.9 pg (28.0-32.0); MCHC MEAN CORPUSCULAR HGB CONC 33.6 % (32.0-36.0); MCV (MEAN CELL VOLUME) 85.9 fl (82.0-96.0); MEAN PLATELET VOLUME 9.8 cmc (9.4-12.4); RED BLOOD COUNT 2.98 mil/cmm (4.40-5.70); RED CELL DISTRIBUTION WIDTH 15.2 % (12.4-16.4)
[2016-11-22 04:21] LABS: BASO % 2.5 % (0-2); EOS % 7.5 % (0-7); IMMATURE GRANULOCYTES ABSOLUTE 0.03 tho/cmm (0-0.03); IMMATURE GRANULOCYTES PERCENT 7.5 % (0-0.3); LYMPH % 72.5 % (20-45); LYMPH ABSOLUTE COUNT 0.3 tho/cmm (0.8-4.5); MONO % 2.5 % (0-12); NEUTROPHILS % 7.5 % (40-80); PLATELET COUNT 113 tho/cmm (150-450)
[2016-11-22 04:22] LABS: WHITE BLOOD COUNT 0.4 tho/cmm (4.0-10.0)
[2016-11-22 04:28] LABS: ALB/GLOB RATIO 0.5 (0.8-2.0); ALBUMIN 2.3 g/dl (3.5-5.0); ALKALINE PHOSPHATASE 80 U/L (33-138); ALT/SGPT 26 U/L (12-78); ANION GAP 11 mmol/L (0-20); AST/SGOT 42 U/L (10-40); BLOOD UREA NITROGEN 30 mg/dl (6-24); CALCIUM 7.7 mg/dl (8.5-10.5); CARBON DIOXIDE-VENOUS 25 mmol/L (22-32); CHLORIDE 100 mmol/l (96-110); CREATININE 1.41 mg/dl (0.60-1.30); GLUCOSE 107 mg/dL (70-110); MAGNESIUM 1.9 mg/dl (1.8-2.6); POTASSIUM 3.8 mmol/L (3.7-5.1); SODIUM 132 mmol/L (135-145); eGFR VALUE FOR BLACK 54 mL/Min
[2016-11-22 14:09] LABS: MCH (MEAN CORPUSCULAR HGB) 28.9 pg (28.0-32.0); MCV (MEAN CELL VOLUME) 86.3 fl (82.0-96.0); MEAN PLATELET VOLUME 9.7 cmc (9.4-12.4); PLATELET COUNT 83 tho/cmm (150-450); RED BLOOD COUNT 2.77 mil/cmm (4.40-5.70)
[2016-11-22 14:11] LABS: BASO % 4.8 % (0-2); EOS % 9.5 % (0-7); HCT-HEMATOCRIT 23.9 % (36.0-53.5); LYMPH % 57.1 % (20-45); LYMPH ABSOLUTE COUNT 0.1 tho/cmm (0.8-4.5); MCHC MEAN CORPUSCULAR HGB CONC 33.5 % (32.0-36.0); NEUTROPHILS % 28.6 % (40-80)
[2016-11-22 14:12] LABS: NEUTROPHIL ABSOLUTE COUNT 0.1 tho/cmm (1.6-8.0)
[2016-11-22 14:13] LABS: WHITE BLOOD COUNT 0.2 tho/cmm (4.0-10.0)
[2016-11-22 20:37] LABS: EOS % 7.5 % (0-7); HGB-HEMOGLOBIN 7.8 gm/dl (13.5-17.0); LYMPH ABSOLUTE COUNT 0.3 tho/cmm (0.8-4.5); MCH (MEAN CORPUSCULAR HGB) 29.1 pg (28.0-32.0); MCV (MEAN CELL VOLUME) 86.9 fl (82.0-96.0); MEAN PLATELET VOLUME 10.3 cmc (9.4-12.4); MONO % 2.5 % (0-12); PLATELET COUNT 78 tho/cmm (150-450); RED BLOOD COUNT 2.68 mil/cmm (4.40-5.70); RED CELL DISTRIBUTION WIDTH 15.1 % (12.4-16.4)
[2016-11-22 20:42] LABS: HCT-HEMATOCRIT 23.3 % (36.0-53.5); MCHC MEAN CORPUSCULAR HGB CONC 33.5 % (32.0-36.0)
[2016-11-22 20:43] LABS: NEUTROPHIL ABSOLUTE COUNT 0.1 tho/cmm (1.6-8.0); WHITE BLOOD COUNT 0.4 tho/cmm (4.0-10.0)
[2016-11-23 04:40] LABS: EOS % 6.3 % (0-7); HCT-HEMATOCRIT 25.5 % (36.0-53.5); HGB-HEMOGLOBIN 8.5 gm/dl (13.5-17.0); LYMPH % 70.8 % (20-45); MCH (MEAN CORPUSCULAR HGB) 28.9 pg (28.0-32.0); MCHC MEAN CORPUSCULAR HGB CONC 33.3 % (32.0-36.0); MCV (MEAN CELL VOLUME) 86.7 fl (82.0-96.0); MEAN PLATELET VOLUME 9.7 cmc (9.4-12.4); NEUTROPHILS % 18.7 % (40-80); PLATELET COUNT 63 tho/cmm (150-450); RED BLOOD COUNT 2.94 mil/cmm (4.40-5.70); RED CELL DISTRIBUTION WIDTH 14.8 % (12.4-16.4)
[2016-11-23 04:48] LABS: ALB/GLOB RATIO 0.5 (0.8-2.0); ALKALINE PHOSPHATASE 66 U/L (33-138); ALT/SGPT 22 U/L (12-78); ANION GAP 12 mmol/L (0-20); AST/SGOT 31 U/L (10-40); BILIRUBIN,TOTAL 2.3 mg/dl (0.0-1.5); BLOOD UREA NITROGEN 24 mg/dl (6-24); CALCIUM 7.3 mg/dl (8.5-10.5); CARBON DIOXIDE-VENOUS 26 mmol/L (22-32); CHLORIDE 100 mmol/l (96-110); CREATININE 1.24 mg/dl (0.60-1.30); GLUCOSE 100 mg/dL (70-110); MAGNESIUM 1.7 mg/dl (1.8-2.6); POTASSIUM 3.7 mmol/L (3.7-5.1); SODIUM 134 mmol/L (135-145); eGFR VALUE FOR BLACK 63 mL/Min
[2016-11-23 04:49] LABS: BASO % 4.2 % (0-2); LYMPH ABSOLUTE COUNT 0.3 tho/cmm (0.8-4.5)
[2016-11-23 04:50] LABS: NEUTROPHIL ABSOLUTE COUNT 0.1 tho/cmm (1.6-8.0); WHITE BLOOD COUNT 0.5 tho/cmm (4.0-10.0)
[2016-11-23 12:25] LABS: EOS % 8.7 % (0-7); HGB-HEMOGLOBIN 9.1 gm/dl (13.5-17.0); IMMATURE GRANULOCYTES PERCENT 4.3 % (0-0.3); LYMPH % 67.4 % (20-45); MCH (MEAN CORPUSCULAR HGB) 29.3 pg (28.0-32.0); MCHC MEAN CORPUSCULAR HGB CONC 33.7 % (32.0-36.0); MCV (MEAN CELL VOLUME) 86.8 fl (82.0-96.0); MEAN PLATELET VOLUME 10.8 cmc (9.4-12.4); MONO % 4.3 % (0-12); PLATELET COUNT 64 tho/cmm (150-450); RED BLOOD COUNT 3.11 mil/cmm (4.40-5.70); RED CELL DISTRIBUTION WIDTH 14.8 % (12.4-16.4)
[2016-11-23 12:39] LABS: BASO % 4.3 % (0-2); IMMATURE GRANULOCYTES ABSOLUTE 0.02 tho/cmm (0-0.03); LYMPH ABSOLUTE COUNT 0.3 tho/cmm (0.8-4.5); NEUTROPHIL ABSOLUTE COUNT 0.1 tho/cmm (1.6-8.0); WHITE BLOOD COUNT 0.5 tho/cmm (4.0-10.0)
[2016-11-23 20:32] LABS: BASO % 2.3 % (0-2); EOS % 9.1 % (0-7); HCT-HEMATOCRIT 24.9 % (36.0-53.5); HGB-HEMOGLOBIN 8.4 gm/dl (13.5-17.0); IMMATURE GRANULOCYTES ABSOLUTE 0.01 tho/cmm (0-0.03); IMMATURE GRANULOCYTES PERCENT 2.3 % (0-0.3); LYMPH % 70.5 % (20-45); LYMPH ABSOLUTE COUNT 0.3 tho/cmm (0.8-4.5); MCH (MEAN CORPUSCULAR HGB) 29.2 pg (28.0-32.0); MCHC MEAN CORPUSCULAR HGB CONC 33.7 % (32.0-36.0); MCV (MEAN CELL VOLUME) 86.5 fl (82.0-96.0); MEAN PLATELET VOLUME 9.7 cmc (9.4-12.4); NEUTROPHILS % 15.8 % (40-80); PLATELET COUNT 54 tho/cmm (150-450); RED BLOOD COUNT 2.88 mil/cmm (4.40-5.70); RED CELL DISTRIBUTION WIDTH 14.7 % (12.4-16.4)
[2016-11-23 20:39] LABS: WHITE BLOOD COUNT 0.4 tho/cmm (4.0-10.0)
[2016-11-23 20:40] LABS: NEUTROPHIL ABSOLUTE COUNT 0.1 tho/cmm (1.6-8.0)
[2016-11-24 04:16] LABS: BASO % 2.3 % (0-2); EOS % 6.8 % (0-7); HCT-HEMATOCRIT 25.4 % (36.0-53.5); HGB-HEMOGLOBIN 8.5 gm/dl (13.5-17.0); LYMPH % 70.5 % (20-45); LYMPH ABSOLUTE COUNT 0.3 tho/cmm (0.8-4.5); MCH (MEAN CORPUSCULAR HGB) 29.1 pg (28.0-32.0); MCHC MEAN CORPUSCULAR HGB CONC 33.5 % (32.0-36.0); MEAN PLATELET VOLUME 10.8 cmc (9.4-12.4); MONO % 4.5 % (0-12); NEUTROPHILS % 15.9 % (40-80); PLATELET COUNT 52 tho/cmm (150-450); RED BLOOD COUNT 2.92 mil/cmm (4.40-5.70); RED CELL DISTRIBUTION WIDTH 14.7 % (12.4-16.4)
[2016-11-24 04:18] LABS: WHITE BLOOD COUNT 0.4 tho/cmm (4.0-10.0)
[2016-11-24 04:19] LABS: NEUTROPHIL ABSOLUTE COUNT 0.1 tho/cmm (1.6-8.0)
[2016-11-24 04:32] LABS: ALB/GLOB RATIO 0.5 (0.8-2.0); ALBUMIN 2.1 g/dl (3.5-5.0); ALKALINE PHOSPHATASE 63 U/L (33-138); ALT/SGPT 22 U/L (12-78); ANION GAP 10 mmol/L (0-20); AST/SGOT 26 U/L (10-40); BILIRUBIN,TOTAL 1.3 mg/dl (0.0-1.5); BLOOD UREA NITROGEN 22 mg/dl (6-24); CALCIUM 7.5 mg/dl (8.5-10.5); CARBON DIOXIDE-VENOUS 28 mmol/L (22-32); CHLORIDE 103 mmol/l (96-110); CREATININE 1.05 mg/dl (0.60-1.30); GLUCOSE 105 mg/dL (70-110); POTASSIUM 3.5 mmol/L (3.7-5.1); SODIUM 137 mmol/L (135-145); eGFR VALUE FOR BLACK 77 mL/Min
[2016-11-24 06:20] LABS: MAGNESIUM 1.8 mg/dl (1.8-2.6)
[2016-11-24 16:24] LABS: BASO % 2.3 % (0-2); EOS % 6.8 % (0-7); HCT-HEMATOCRIT 25.6 % (36.0-53.5); HGB-HEMOGLOBIN 8.4 gm/dl (13.5-17.0); LYMPH % 68.2 % (20-45); LYMPH ABSOLUTE COUNT 0.3 tho/cmm (0.8-4.5); MCH (MEAN CORPUSCULAR HGB) 28.8 pg (28.0-32.0); MCHC MEAN CORPUSCULAR HGB CONC 32.8 % (32.0-36.0); MCV (MEAN CELL VOLUME) 87.7 fl (82.0-96.0); MEAN PLATELET VOLUME 10.2 cmc (9.4-12.4); MONO % 2.3 % (0-12); NEUTROPHILS % 20.4 % (40-80); RED BLOOD COUNT 2.92 mil/cmm (4.40-5.70); RED CELL DISTRIBUTION WIDTH 14.8 % (12.4-16.4)
[2016-11-24 16:31] LABS: NEUTROPHIL ABSOLUTE COUNT 0.1 tho/cmm (1.6-8.0); PLATELET COUNT 45 tho/cmm (150-450)
[2016-11-24 16:32] LABS: WHITE BLOOD COUNT 0.4 tho/cmm (4.0-10.0)
[2016-11-25 05:17] LABS: EOS % 10.2 % (0-7); EOSINOPHIL ABSOLUTE COUNT 0.1 tho/cmm (0.0-0.7); HCT-HEMATOCRIT 24.2 % (36.0-53.5); IMMATURE GRANULOCYTES ABSOLUTE 0.01 tho/cmm (0-0.03); LYMPH % 63.3 % (20-45); LYMPH ABSOLUTE COUNT 0.3 tho/cmm (0.8-4.5); MCHC MEAN CORPUSCULAR HGB CONC 33.1 % (32.0-36.0); MCV (MEAN CELL VOLUME) 87.7 fl (82.0-96.0); MEAN PLATELET VOLUME 11.1 cmc (9.4-12.4); MONO % 10.2 % (0-12); MONOCYTE ABSOLUTE COUNT 0.1 tho/cmm (0.0-1.2); NEUTROPHILS % 12.3 % (40-80); RED BLOOD COUNT 2.76 mil/cmm (4.40-5.70); RED CELL DISTRIBUTION WIDTH 14.8 % (12.4-16.4)
[2016-11-25 05:23] LABS: PLATELET COUNT 126 tho/cmm (150-450); WHITE BLOOD COUNT 0.5 tho/cmm (4.0-10.0)
[2016-11-25 05:24] LABS: NEUTROPHIL ABSOLUTE COUNT 0.1 tho/cmm (1.6-8.0)
[2016-11-25 05:37] LABS: ANION GAP 11 mmol/L (0-20); BLOOD UREA NITROGEN 22 mg/dl (6-24); CALCIUM 7.7 mg/dl (8.5-10.5); CARBON DIOXIDE-VENOUS 27 mmol/L (22-32); CHLORIDE 102 mmol/l (96-110); CREATININE 1.07 mg/dl (0.60-1.30); GLUCOSE 95 mg/dL (70-110); MAGNESIUM 1.8 mg/dl (1.8-2.6); POTASSIUM 3.9 mmol/L (3.7-5.1); SODIUM 136 mmol/L (135-145); eGFR VALUE FOR BLACK 75 mL/Min
[2017-03-24] MEDS ORDERED: ASPIRIN EC81 MG PO (23:07)
[2017-03-24] MEDS ORDERED: PROTONIX40 M2 PO (23:07)
[2017-03-24] MEDS ORDERED: MAGNESIUM400 M2 PO (23:07)
[2017-03-24] MEDS ORDERED: LIPITOR40 M1 PO (23:08)
[2017-03-24] MEDS ORDERED: PRINIVIL5 M1 PO (23:08)
[2017-03-24] MEDS ORDERED: VITAMIN B-6100 M1 PO (23:08)
[2017-03-24] MEDS ORDERED: PLAVIX75 M1 PO (23:08)
[2017-03-25] MEDS ORDERED: LOPERAMIDE2 M2 PO (10:07)
[2017-04-02] MEDS ORDERED: IPRAT-ALBUT 0.5-3 ML NEB ×2 (11:48→11:50)
[2017-04-02] MEDS ORDERED: PACERONE200 M1 PO (11:52)
[2017-04-02] MEDS ORDERED: LASIX20 M1 PO (12:47)
[2017-04-15] MEDS ORDERED: ANALGESIC BALM30 G2 TOP (15:23)
[2017-04-15] MEDS ORDERED: LIDODERM1 EACH TOP (15:38)
== END 2016-11-25 14:30 | DRG 380 ==
LOC: EDMED 05:24 → 5WF 08:41
PROVIDERS: Emergency Medicine; Family Medicine; Internal Medicine; Internal Medicine Hematology & Oncology; Nurse Practitioner; Physician Assistant Medical; Registered Nurse; ADMIT Internal Medicine
PROC: 30233R1 Transfusion of Nonautologous Platelets into Peripheral Vein, Percutaneous Approach (ICD-10-PCS; 2016-11-13)
PROC: 02HV33Z Insertion of Infusion Device into Superior Vena Cava, Percutaneous Approach (ICD-10-PCS; 2016-11-14)
PROC: 0DB48ZX Excision of Esophagogastric Junction, Via Natural or Artificial Opening Endoscopic, Diagnostic (ICD-10-PCS; principal; 2016-11-16)
PROC: 0DC48ZZ Extirpation of Matter from Esophagogastric Junction, Via Natural or Artificial Opening Endoscopic (ICD-10-PCS; 2016-11-16)
PROC: 0D568ZZ Destruction of Stomach, Via Natural or Artificial Opening Endoscopic (ICD-10-PCS; 2016-11-16)
PROC: 0DBN8ZX Excision of Sigmoid Colon, Via Natural or Artificial Opening Endoscopic, Diagnostic (ICD-10-PCS; 2016-11-19)
DX: K22.11 Ulcer of esophagus with bleeding (principal); N17.0 Acute kidney failure with tubular necrosis; K55.21 Angiodysplasia of colon with hemorrhage; D61.818 Other pancytopenia; D70.9 Neutropenia, unspecified; I95.9 Hypotension, unspecified; K63.3 Ulcer of intestine; R65.10 Systemic inflammatory response syndrome (SIRS) of non-infectious origin without acute organ dysfunction; L03.114 Cellulitis of left upper limb; K57.92 Diverticulitis of intestine, part unspecified, without perforation or abscess without bleeding; D62 Acute posthemorrhagic anemia; Z51.5 Encounter for palliative care; K44.9 Diaphragmatic hernia without obstruction or gangrene; R50.81 Fever presenting with conditions classified elsewhere; I80.9 Phlebitis and thrombophlebitis of unspecified site; D46.9 Myelodysplastic syndrome, unspecified; E80.6 Other disorders of bilirubin metabolism; K21.0 Gastro-esophageal reflux disease with esophagitis; M81.0 Age-related osteoporosis without current pathological fracture; F32.9 Major depressive disorder, single episode, unspecified; D12.5 Benign neoplasm of sigmoid colon; Z85.46 Personal history of malignant neoplasm of prostate; Z85.72 Personal history of non-Hodgkin lymphomas; F17.210 Nicotine dependence, cigarettes, uncomplicated; I71.4 Abdominal aortic aneurysm, without rupture; D69.59 Other secondary thrombocytopenia; I25.10 Atherosclerotic heart disease of native coronary artery without angina pectoris; I12.9 Hypertensive chronic kidney disease with stage 1 through stage 4 chronic kidney disease, or unspecified chronic kidney disease; N18.3 Chronic kidney disease, stage 3 (moderate)
CPT/HCPCS: A9560; C1751; C9113; G8978-GP-CI; G8979-GP-CI; J0692; J0885; J1447; J1940; J2405; J2543; J3370; J3475; J7030; J7050; P9031; P9033; P9035; P9037; P9040

== ENCOUNTER 2016-12-26 18:46 | Emergency (ER) | payer MEDICARE, MEDICAID ==
[~2016-12-26 18:46] MED LIST changes: +ONDANSETRON HCL8 M1 PO
[2016-12-26] MEDS ORDERED: TUMS200 MG PO (19:25)
[2016-12-26] MEDS ORDERED: NEULASTA6 MG/0.61 SC (19:27)
[2016-12-26 19:38] LABS: HCT-HEMATOCRIT 34.9 % (36.0-53.5); HGB-HEMOGLOBIN 10.9 gm/dl (13.5-17.0); MCH (MEAN CORPUSCULAR HGB) 29.7 pg (28.0-32.0); MCHC MEAN CORPUSCULAR HGB CONC 31.2 % (32.0-36.0); MCV (MEAN CELL VOLUME) 95.1 fl (82.0-96.0); NEUTROPHIL-AUTOMATED 35.6 tho/cmm (1.6-8.0); PLATELET COUNT 308 tho/cmm (150-450); RED BLOOD COUNT 3.67 mil/cmm (4.40-5.70); RED CELL DISTRIBUTION WIDTH 18.4 % (12.4-16.4)
[2016-12-26 19:41] LABS: WHITE BLOOD COUNT 38.8 tho/cmm (4.0-10.0)
[2016-12-26 19:42] LABS: INR 1.1 INR (0.9-1.1)
[2016-12-26 19:52] LABS: ALB/GLOB RATIO 0.6 (0.8-2.0); ALBUMIN 2.9 g/dl (3.5-5.0); ALKALINE PHOSPHATASE 125 U/L (33-138); ALT/SGPT 15 U/L (12-78); ANION GAP 14 mmol/L (0-20); AST/SGOT 24 U/L (10-40); BILIRUBIN,TOTAL 0.4 mg/dl (0.0-1.5); BLOOD UREA NITROGEN 24 mg/dl (6-24); CALCIUM 8.9 mg/dl (8.5-10.5); CARBON DIOXIDE-VENOUS 25 mmol/L (22-32); CHLORIDE 104 mmol/l (96-110); CREATININE 1.93 mg/dl (0.60-1.30); GLUCOSE 118 mg/dL (70-110); POTASSIUM 4.2 mmol/L (3.7-5.1); SODIUM 139 mmol/L (135-145); eGFR VALUE FOR BLACK 37 mL/Min
[2016-12-26 20:10] LABS: BAND % 6 % (0-20); BAND ABSOLUTE COUNT 2.3 tho/cmm (0-2.0)
[2016-12-26] MEDS ORDERED: BENADRYL25 M3 PO (20:46)
[2016-12-26] MEDS ORDERED: PREDNISONE20 M1 PO (20:47)
[2017-03-24] MEDS ORDERED: ASPIRIN EC81 MG PO (23:07)
[2017-03-24] MEDS ORDERED: PROTONIX40 M2 PO (23:07)
[2017-03-24] MEDS ORDERED: MAGNESIUM400 M2 PO (23:07)
[2017-03-24] MEDS ORDERED: LIPITOR40 M1 PO (23:08)
[2017-03-24] MEDS ORDERED: PRINIVIL5 M1 PO (23:08)
[2017-03-24] MEDS ORDERED: VITAMIN B-6100 M1 PO (23:08)
[2017-03-24] MEDS ORDERED: PLAVIX75 M1 PO (23:08)
[2017-03-25] MEDS ORDERED: LOPERAMIDE2 M2 PO (10:07)
[2017-04-02] MEDS ORDERED: IPRAT-ALBUT 0.5-3 ML NEB ×2 (11:48→11:50)
[2017-04-02] MEDS ORDERED: PACERONE200 M1 PO (11:52)
[2017-04-02] MEDS ORDERED: LASIX20 M1 PO (12:47)
[2017-04-15] MEDS ORDERED: ANALGESIC BALM30 G2 TOP (15:23)
[2017-04-15] MEDS ORDERED: LIDODERM1 EACH TOP (15:38)
== END 2016-12-26 21:23 ==
LOC: EDMED 18:46
PROVIDERS: Emergency Medicine
DX: L27.0 Generalized skin eruption due to drugs and medicaments taken internally (principal); T45.8X5A Adverse effect of other primarily systemic and hematological agents, initial encounter; K21.9 Gastro-esophageal reflux disease without esophagitis; D64.9 Anemia, unspecified; Z98.890 Other specified postprocedural states; Z85.72 Personal history of non-Hodgkin lymphomas; Z79.899 Other long term (current) drug therapy
CPT/HCPCS: J1200; J2930

== ENCOUNTER 2017-01-24 15:57 | Emergency (ER) | payer MEDICARE, MEDICAID ==
[~2017-01-24 15:57] MED LIST changes: +BENADRYL25 M3 PO; +NEULASTA6 MG/0.61 SC; +PREDNISONE20 M1 PO; +TUMS200 MG PO
[2017-01-24] MEDS ORDERED: FLONASE ALLERG9.9 ML (16:20)
[2017-01-24] MEDS ORDERED: COLACE100 M1 PO (16:20)
[2017-01-24] MEDS ORDERED: OMEPRAZOLE20 M3 PO (16:21)
[2017-01-24 16:50] LABS: BASO % 0.3 % (0-2); EOS % 4.3 % (0-7); EOSINOPHIL ABSOLUTE COUNT 0.3 tho/cmm (0.0-0.7); HCT-HEMATOCRIT 32.8 % (36.0-53.5); HGB-HEMOGLOBIN 10.6 gm/dl (13.5-17.0); IMMATURE GRANULOCYTES ABSOLUTE 0.02 tho/cmm (0-0.03); IMMATURE GRANULOCYTES PERCENT 0.3 % (0-0.3); LYMPH % 6.8 % (20-45); LYMPH ABSOLUTE COUNT 0.5 tho/cmm (0.8-4.5); MCH (MEAN CORPUSCULAR HGB) 32.2 pg (28.0-32.0); MCHC MEAN CORPUSCULAR HGB CONC 32.3 % (32.0-36.0); MCV (MEAN CELL VOLUME) 99.7 fl (82.0-96.0); MEAN PLATELET VOLUME 9.1 cmc (9.4-12.4); MONO % 4.6 % (0-12); MONOCYTE ABSOLUTE COUNT 0.3 tho/cmm (0.0-1.2); NEUTROPHIL ABSOLUTE COUNT 5.7 tho/cmm (1.6-8.0); NEUTROPHIL-AUTOMATED 5.7 tho/cmm (1.6-8.0); NEUTROPHILS % 83.7 % (40-80); PLATELET COUNT 129 tho/cmm (150-450); RED BLOOD COUNT 3.29 mil/cmm (4.40-5.70); RED CELL DISTRIBUTION WIDTH 21.5 % (12.4-16.4); WHITE BLOOD COUNT 6.8 tho/cmm (4.0-10.0)
[2017-01-24 17:04] LABS: ALB/GLOB RATIO 0.7 (0.8-2.0); ALBUMIN 3.1 g/dl (3.5-5.0); ALKALINE PHOSPHATASE 66 U/L (33-138); ALT/SGPT 14 U/L (12-78); ANION GAP 11 mmol/L (0-20); AST/SGOT 18 U/L (10-40); BILIRUBIN,TOTAL 0.7 mg/dl (0.0-1.5); BLOOD UREA NITROGEN 20 mg/dl (6-24); CALCIUM 8.2 mg/dl (8.5-10.5); CARBON DIOXIDE-VENOUS 26 mmol/L (22-32); CHLORIDE 105 mmol/l (96-110); CREATININE 1.77 mg/dl (0.60-1.30); GLUCOSE 93 mg/dL (70-110); POTASSIUM 4.3 mmol/L (3.7-5.1); SODIUM 138 mmol/L (135-145); eGFR VALUE FOR BLACK 41 mL/Min
[2017-01-24] MEDS ORDERED: LOPERAMIDE2 M2 PO (18:10)
[2017-03-24] MEDS ORDERED: PROTONIX40 M2 PO (23:07)
[2017-03-24] MEDS ORDERED: MAGNESIUM400 M2 PO (23:07)
[2017-03-24] MEDS ORDERED: ASPIRIN EC81 MG PO (23:07)
[2017-03-24] MEDS ORDERED: PLAVIX75 M1 PO (23:08)
[2017-03-24] MEDS ORDERED: LIPITOR40 M1 PO (23:08)
[2017-03-24] MEDS ORDERED: VITAMIN B-6100 M1 PO (23:08)
[2017-03-24] MEDS ORDERED: PRINIVIL5 M1 PO (23:08)
[2017-03-25] MEDS ORDERED: LOPERAMIDE2 M2 PO (10:07)
[2017-04-02] MEDS ORDERED: IPRAT-ALBUT 0.5-3 ML NEB ×2 (11:48→11:50)
[2017-04-02] MEDS ORDERED: PACERONE200 M1 PO (11:52)
[2017-04-02] MEDS ORDERED: LASIX20 M1 PO (12:47)
[2017-04-15] MEDS ORDERED: ANALGESIC BALM30 G2 TOP (15:23)
[2017-04-15] MEDS ORDERED: LIDODERM1 EACH TOP (15:38)
== END 2017-01-24 18:14 ==
LOC: EDMED 15:57
PROVIDERS: Emergency Medicine
DX: R19.7 Diarrhea, unspecified (principal); Z98.890 Other specified postprocedural states; F17.210 Nicotine dependence, cigarettes, uncomplicated
CPT/HCPCS: J7030